=== PATIENT | male | born 1945 | race Caucasian/White ===

== ENCOUNTER 2016-08-21 07:14 | Emergency (ER) | payer OTHER ==
[~2016-08-21] VITALS: Ht 182.9 cm; Wt 104.3 kg
[2016-08-21 07:16] VITALS: BP 213/100
[2016-08-21] MEDS ORDERED: IBUPROFEN600 M1 PO (07:41)
[2016-08-21] MEDS ORDERED: AMOXICILLIN875 M1 PO (07:41)
--- NOTE | 2016-08-21 07:42 | ED EAR COMPLAINT ---
History of Present Illness General Chief Complaint: Ear Complaints Stated Complaint: L EAR PAIN/UNABLE TO HEAR Source: patient, old records Exam Limitations: no limitations Vital Signs & Intake/Output Vital Signs & Intake/Output Vital Signs Date Time Temp Pulse Resp B/P B/P Pulse O2 O2 Flow FiO2 Mean Ox Delivery Rate 08/21 0747 97.4 08/21 0616 97.4 74 20 213/100 99 Room Air Allergies Coded Allergies: NO KNOWN ALLERGIES (07/08/12) Reconcile Medications Amoxicillin 875 MG TABLET 1 TAB PO BID otitis media Ibuprofen 600 MG TABLET 1 TAB PO Q6PRN PRN pain with food Triage Note: PT TO ED C/O LEFT EAR PAIN SINCE YESTERDAY. WORSE TODAY, C/O NOT BEING ABLE TO HEAR. Triage Nurses Notes Reviewed? 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 Denies fever chills nausea vomiting diarrhea abdominal pain chest pain shortness of breath cough congestion headache rash dysuria bleeding. Past History Travel History Traveled to [place] past 21 day No Medical History Any Pertinent Medical History? see below for history Cardiovascular: hypertension Surgical History Surgical History: non-contributory Psychosocial History What is your primary language Syrian Tobacco Use: Never used ETOH Use: denies use Illicit Drug Use: denies illicit drug use Family History Hx Contributory? No Review of Systems Review of Systems Constitutional: Reports: no symptoms. EENTM: Reports: see HPI, ear pain, hearing changes. Respiratory: Reports: no symptoms. Cardiovascular: Reports: no symptoms. GI: Reports: no symptoms. Genitourinary: Reports: no symptoms. Musculoskeletal: Reports: no symptoms. Skin: Reports: no symptoms. Neurological/Psychological: Reports: no symptoms. Hematologic/Endocrine: Reports: no symptoms. Immunologic/Allergic: Reports: no symptoms. All Other Systems: Reviewed and Negative Physical Exam Physical Exam General Appearance: well developed/nourished, alert, awake, anxious, mild distress Head: atraumatic, normal appearance Eyes: Bilateral: normal appearance, PERRL, EOMI. Ears: Left: Tympanic red, Tympanic bulging. Right: Tympanic dull. Bilateral: canal normal. 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 Skin: intact, normal color, warm/dry Progress Differential Diagnoses I considered the following diagnoses in my evaluation of the patient: Otitis media otitis externa cerumen impaction Plan of Care: Current Medications Sig/Hannah Start time Last Medication Dose Stop Time Status Admin Amoxicillin 750 MG ONCE ONE 08/21 744 UNVr (Amoxil) 08/21 745 Ibuprofen 600 MG ONCE ONE 08/21 744 UNVr (Motrin) 08/21 745 Initial ED EKG: none Departure Departure Time of Disposition: 739 Disposition: HOME OR SELF CARE Condition: Stable Clinical Impression Primary Impression: Otitis media Qualifiers: Otitis media type: unspecified Chronicity: acute Laterality: unspecified laterality Qualified Code: H66.90 - Otitis media, unspecified, unspecified ear Referrals: CHIKA YOUNGBLOOD MD (PCP/Family) RODDY ROBLES MD Departure Forms: Customer Survey General Discharge Information Prescriptions: Current Visit Scripts Amoxicillin 1 TAB PO BID #20 TAB Ibuprofen 1 TAB PO Q6PRN PRN pain #50 TAB with food
== END 2016-08-21 07:50 ==
LOC: ERH 07:14
DX: H66.92 Otitis media, unspecified, left ear (principal)